=== PATIENT | male | born 1935 | race Caucasian/White ===

== ENCOUNTER 2017-03-27 09:11 | Outpatient (CLI) | payer OTHER ==
--- NOTE | 2017-03-27 13:49 | DIAGNOSTIC IMAGING REPORT ---
PROCEDURE: US VENOUS - BILATERAL EXT INDICATION: NON HEALING WOUNDS TECHNIQUE: Duplex sonography of the deep and superficial venous system in both lower extremities was performed. Compression and augmentation techniques were used. The patient was scanned in the upright position. Surveillance of the venous system during Valsalva maneuver when appropriate was performed. COMPARISON: None. FINDINGS: The bilateral common femoral, superficial femoral and greater saphenous veins are competent bilaterally. Right greater saphenous vein measures 4.7 mm proximally, 2.4 mm mid and 1.7 mm distally. Left greater saphenous vein measures 8.9 mm proximally, 4.5 mm mid and is surgically absent distally. IMPRESSION: 1. No evidence of venous insufficiency in both lower extremities.
--- NOTE | 2017-03-27 14:33 | DIAGNOSTIC IMAGING REPORT ---
PROCEDURE: US LTD B/L ART LOW EXT DOPPLER INDICATION: NON HEALING WOUNDS TECHNIQUE: Color Doppler duplex imaging of the lower extremities was performed. Unable to obtain AMAIRANI's due to right calf wound location. COMPARISON: None. FINDINGS: RIGHT LOWER EXTREMITY: VESSELS: Mild to moderate atherosclerosis. Biphasic wave form from the external iliac artery to the ankle. There is no flow in the anterior tibial artery. RIGHT LOWER EXTREMITY PEAK SYSTOLIC VELOCITIES: External iliac: 110 cm/second. Common femoral artery: 146 cm/second. Profunda femoral artery: 177 cm/second. Proximal superficial femoral artery: 111 cm/second. Mid superficial femoral artery: 64 cm/second. Distal superficial femoral artery: 33 cm/second. Popliteal artery: 173 cm/second. Proximal posterior tibial artery: 32 cm/second. Proximal anterior tibial artery: No flow Distal posterior tibial artery: 43 cm/second. Dorsalis pedis artery: 20 cm/second. LEFT LOWER EXTREMITY: VESSELS: Mild to moderate atherosclerosis. There is a patent - fem-pop bypass graft. Biphasic wave form throughout the left lower extremity. LEFT LOWER EXTREMITY PEAK SYSTOLIC VELOCITIES: External iliac: 163 cm/second. Common femoral artery: 127 cm/second. Profunda femoral artery: 67 cm/second. Bypass graft, the proximal anastomosis: 121 cm/sec Mid graft: 28 cm/sec Graft distal anastomosis: 68 cm/sec Popliteal artery: 43 cm/second. Proximal posterior tibial artery: 23 cm/second. Proximal anterior tibial artery: 33 cm/second. Distal posterior tibial artery: 48 cm/second. Dorsalis pedis artery: 37 cm/second. IMPRESSION: 1. Right lower extremity: Mild to moderate with atherosclerosis with biphasic wave form of the external iliac artery suggestive of inflow disease. 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 2. Left lower extremity: Mild to moderate atherosclerosis with biphasic wave form of the external iliac artery suggestive of inflow disease. There is a patent fem-pop graft with peak systolic velocities suggestive of distal anastomosis greater than 50% stenosis. There is also high-grade stenosis of the distal posterior tibial artery.
== END 2017-03-27 23:00 ==
LOC: US SRH 09:11
DX: I70.208 Unspecified atherosclerosis of native arteries of extremities, other extremity (principal)